=== PATIENT | female | born 1965 | race Caucasian/White ===

== ENCOUNTER → 2017-09-13 | Outpatient (CLI) | payer OTHER ==
--- NOTE | 2017-09-13 16:02 | DIAGNOSTIC IMAGING REPORT ---
R HAND MIN 3 VIEWS ROUTINE CLINICAL HISTORY: PAIN @ 4TH METACARPAL R HAND COMPARISON: None. DISCUSSION: No acute fractures are visualized. There are no dislocations. There are no erosive or destructive changes. IMPRESSION: 1. No fractures or dislocations identified 2. No evidence of erosive disease Electronically signed by: Jeff Caballero M.D. 09/13/2017 4:01 PM Dictated Date/Time: 09/13/2017 4:00 PM
== END | disposition home or self-care (01) ==
LOC: C.RAD1850 15:52
PROVIDERS: ATTEND Emergency Medicine
DX: M79.641 Pain in right hand (principal)